=== PATIENT | male | born 1945 | race Caucasian/White ===

== ENCOUNTER 2023-04-06 07:07 | Outpatient (CLI) | payer MEDICARE, OTHER, SELFPAY ==
--- NOTE | ~2023-04-06 | NM_ITS ---
EXAMINATION: NM bone scan whole body DATE: 04/06/2023 12:23 INDICATION: Malignant neoplasm of the prostate TECHNIQUE: 28 mCi Tc-99m HDP was administered intravenously. Delayed whole-body scintigrams were obt ained. COMPARISON: There are no relevant imaging studies at our institution. 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 Mild likely degenerati ve joint centered uptake at the bilateral acromioclavicular joints, right ankle and left midfoot. The re is asymmetric prominent left-sided and mild right-sided uptake at the bilateral sternoclavicular j oints. Typical pattern of likely degenerative disc and facet joint related uptake at the cervical and lower lumbar spine. Moderate uptake extending across the thoracic spine at the level of T8 suspiciou s for compression fracture. Relatively symmetric bilateral mild uptake at the maxilla which may be re lated to dental disease. IMPRESSION: 1. Prominent increased uptake extending across the T8 vertebral body with pattern suggesting this is related to compression fracture but would correlate with either recent prior or follow-up imaging whi ch could include either radiographs, CT or MRI. 2. Prominent asymmetric uptake at the left sternoclavicular joint most likely degenerative in etiolog y although differential would include less likely fracture or malignancy and would similarly recommen d correlation with prior or follow-up imaging. 3. Otherwise relatively typical pattern of mild likely degenerative disc and joint centered uptake as detailed above. Reviewed, dictated and finalized at location A. [facility] REPRESENTATIVE IMPRESSION: 1. Prominent increased uptake extending across the T8 vertebral body with patte rn suggesting this is related to compression fracture but would correlate with either recent prior or follow-up imaging which could include either radiographs , CT or MRI. 2. Prominent asymmetric uptake at the left sternoclavicular joint most likely d egenerative in etiology although differential would include less likely fractur e or malignancy and would similarly recommend correlation with prior or follow- up imaging. 3. Otherwise relatively typical pattern of mild likely degenerative disc and sunil int centered uptake as detailed above.
== END 2023-04-06 07:08 | disposition home or self-care (01) ==
PROVIDERS: Visit Provider Urology
DX: C61 Malignant neoplasm of prostate (principal); R93.7 Abnormal findings on diagnostic imaging of other parts of musculoskeletal system
CPT/HCPCS: 78306; A9503